=== PATIENT | female | born 1955 | race Caucasian/White ===

== ENCOUNTER → 2018-04-04 | Outpatient (CLI) | payer MEDICARE ==
[2018-04-04 10:48] LABS: HCT 40.8 % (34.0-46.0); HGB 13.1 gm/dL (11.4-16.0); MCH 30.1 pg (25.0-35.0); MCHC 32.1 g/dL (31.0-37.0); MCV 93.9 fL (80.0-100.0); Mean Platelet Volume 7.4; Platelet Count 302 k/uL (150-450); RBC 4.34 m/uL (3.80-5.40); RDW 13.2 % (11.5-15.5); WBC 7.9 k/uL (3.8-10.6)
[2018-04-04 11:16] LABS: ALT 31 U/L (9-52); AST 25 U/L (14-36); Albumin 4.2 g/dL (3.5-5.0); Alkaline Phosphatase 48 U/L (38-126); Anion Gap 8 mmol/L; Blood Urea Nitrogen 11 mg/dL (7-17); Calcium 9.4 mg/dL (8.4-10.2); Carbon Dioxide 26 mmol/L (22-30); Chloride 105 mmol/L (98-107); Cholesterol 237 mg/dL (<200); Glucose 97 mg/dL (74-99); HDL Cholesterol 81 mg/dL (40-60); LDL Cholesterol,Calculated 135 mg/dL (0-99); Potassium 4.9 mmol/L (3.5-5.1); Sodium 139 mmol/L (137-145); Total Bilirubin 0.7 mg/dL (0.2-1.3); Total Protein 6.9 g/dL (6.3-8.2); Triglycerides 105 mg/dL (<150)
[2018-04-04 11:28] LABS: Appearance,Urine Clear (Clear); Bacteria,Urine Occasional /hpf; Bilirubin,Urine Negative (Negative); Blood,Urine Negative (Negative); Color,Urine Light Yellow; Glucose,Urine (UA) Negative (Negative); Ketones,Urine Negative (Negative); Leukocyte Esterase,Urine Small (Negative); Nitrite,Urine Negative (Negative); Protein,Urine Negative (Negative); RBC,Urine <1 /hpf (0-5); Specific Gravity,Urine 1.004 (1.001-1.035); Urobilinogen,Urine <2.0 mg/dL (<2.0)
== END ==
LOC: LABWHC1 09:29
PROVIDERS: ATTEND Family Medicine
DX: Z00.00 Encounter for general adult medical examination without abnormal findings (principal)
CPT/HCPCS: 36415; 80053; 80061; 81001; 85027; 87086

== ENCOUNTER 2021-01-29 07:43 | Day surgery (SDC) | payer MEDICARE ==
[2021-01-27 09:45] VITALS: BMI 23.8
[~2021-01-29 07:43] MED LIST: LACTATED RINGERS 1,000 ML IV SCH; LIDOCAINE 1% (10MG/ML) FOR IV START INTRADERMA PRN
[2021-01-29 08:17] VITALS: TEMP 98.4
[2021-01-29] MEDS ORDERED: PROPOFOL 10 MG/ML 20 ML VIAL IV ONE (08:49)
--- NOTE | 2021-01-29 09:08 | P.PCN ---
Date of Procedure: 01/29/21 Procedure(s) Performed: BRIEF HISTORY: Patient is a 65-year-old pleasant white female scheduled for an elective colonoscopy as a part of surveillance of long-standing history of ulcerative colitis. Lately she has been having frequent bowel movements with intermittent dysphagia for a day which are loose in consistency but no blood or mucus in the stool. PROCEDURE PERFORMED: Colonoscopy with random biopsies. PREOPERATIVE DIAGNOSIS: Long-standing history history of ulcerative colitis. IV sedation per Anesthesia. PROCEDURE: After informed consent was obtained, the patient, was brought into the endoscopy unit. IV sedation was administered by Anesthesia under continuous monitoring. Digital rectal examination was normal. Initially the Olympus CF-160 flexible video colonoscope was then inserted in the rectum, gradually advanced into the cecum without any difficulty. Careful examination was performed as the scope was gradually being withdrawn. Ileocecal valve and the appendiceal orifice were visualized and appeared normal. Prep was excellent. Mucosa of the cecum, ascending colon, transverse colon appeared normal. There was mild colitis involving the distal descending colon all the way to the rectum up to 45 cm from the anal verge with mild mucosal erythema and friability and multiple biopsies were done from this area. Also there were scattered sigmoid diverticulosis seen. No polyps noted. The patient tolerated the procedure well. IMPRESSION: Mild mucosal erythema with granularity noted in the rectum sigmoid colon and distal descending colon to 45 cm from the anal verge consistent with mild left sided colitis Rest of the colon appeared normal Scattered sigmoid diverticulosis RECOMMENDATIONS: Findings of this examination were discussed with the patientas well as a family. She was advised to follow with the biopsy results. She will be started on oral mesalamine and she'll follow up in office in 3 months..
[2021-01-29 09:42] VITALS: BP 137/81; PULSE 57; RESP 20
== END 2021-01-29 10:08 | disposition home or self-care (01) ==
LOC: ORWHC2ENDO 07:43
PROVIDERS: ATTEND Internal Medicine Gastroenterology
DX: D72.820 Lymphocytosis (symptomatic) (principal); K51.90 Ulcerative colitis, unspecified, without complications; R13.10 Dysphagia, unspecified; F17.200 Nicotine dependence, unspecified, uncomplicated; Z98.890 Other specified postprocedural states; K62.89 Other specified diseases of anus and rectum; K57.30 Diverticulosis of large intestine without perforation or abscess without bleeding
CPT/HCPCS: 88305; 45380; J2704

== ENCOUNTER 2023-12-09 10:41 | Inpatient (IN) | payer MEDICARE ==
--- NOTE | 2023-12-09 11:04 | ED ---
Abdominal Pain HPI - General Chief Complaint: Abdominal Pain Stated Complaint: Constipation Time Seen by Provider: 12/09/23 10:53 Source: patient, RN notes reviewed Mode of arrival: ambulatory Limitations: no limitations - History of Present Illness Initial Comments: This is a 68-year-old female who presents to the emergency department for abdominal pain and constipation. States that 4 days ago she tripped and fell off of a stepstool. She only fell off of the bottom step. She has minor aches and pains and bruises, but states that since then she has been unable to have a bowel movement. Unsure if this is related. There was no abdominal trauma. States that her abdomen feels bloated and she has minor nausea. She is passing very little gas. Reports a history of colitis. States that she was advised to go to the emergency department to rule out a blockage. Denies any history of bowel obstructions. MD Complaint: abdominal pain - Related Data Home Medications Medication Instructions Recorded Confirmed Balsalazide Disodium 2,250 tab PO TID-W/MEALS 01/18/23 12/09/23 Vitamin D3 Gummy (Unknown Strength) 1 dose PO DAILY 12/09/23 12/09/23 Allergies Allergy/AdvReac Type Severity Reaction Status Date / Time No Known Allergies Allergy Verified 12/09/23 14:30 Review of Systems ROS Statement: Those systems with pertinent positive or pertinent negative responses have been documented in the HPI. ROS Other: All systems not noted in ROS Statement are negative. Past Medical History Past Medical History: No Reported History Additional Past Medical History / Comment(s): colitis History of Any Multi-Drug Resistant Organisms: None Reported Past Surgical History: Tonsillectomy, Tubal Ligation Additional Past Surgical History / Comment(s): COLONOSCOPY. ORIF LT LITTLE FINGER. BILAT BREAST BX Past Anesthesia/Blood Transfusion Reactions: No Reported Reaction Past Psychological History: No Psychological Hx Reported Smoking Status: Never smoker Past Alcohol Use History: Occasional Past Drug Use History: None Reported - Past Family History Brother(s) Family Medical History: Cancer General Exam Limitations: no limitations General appearance: alert, in no apparent distress Head exam: Present: atraumatic, normocephalic, normal inspection Respiratory exam: Present: normal lung sounds bilaterally. Absent: respiratory distress, wheezes, rales, rhonchi, stridor Cardiovascular Exam: Present: regular rate, normal rhythm, normal heart sounds. Absent: systolic murmur, diastolic murmur, rubs, gallop, clicks GI/Abdominal exam: Present: tenderness (diffuse), normal bowel sounds, other (bloated) Neurological exam: Present: alert, oriented X3, CN II-XII intact Psychiatric exam: Present: normal affect, normal mood Skin exam: Present: warm, dry, intact, normal color. Absent: rash Course Vital Signs 12/09/23 12/09/23 10:44 16:13 Temperature 97.6 F 97.5 F L Pulse Rate 71 66 Respiratory 16 16 Rate Blood Pressure 117/72 179/85 O2 Sat by Pulse 98 100 Oximetry Medical Decision Making - Medical Decision Making This is a 68 year old female who presents to the emergency department for abdominal pain and constipation. Was pt. sent in by a medical professional or institution? @ -No Did you speak to anyone other than the patient for history? @ -No Did you review nursing and triage notes? @ -Yes, and I agree, it is accurate with regards to the patient's symptoms. Were old charts reviewed? @ -No Differential Diagnosis? @ -Differential Abdominal Pain Women: Appendicitis, Cholecystitis, diverticulosis, ischemic bowel, pancreatitis, hepatitis, UTI, gastroenteritis, AAA, incarcerated hernia, bowel obstruction, constipation, inflammatory bowel, hepatitis, peptic ulcer disease, splenic infarction, perforated viscus, vulvitis, ovarian torsion, PID, kidney stone, placenta abruption, this is not meant to be an all-inclusive list EKG interpreted by me (3pts min.)? @ -Not obtained X-rays interpreted by me (1pt min.)? @ -Not obtained CT interpreted by me (1pt min.)? @ -CT scan of the abdomen and pelvis obtained. My interpretation identifies a large stool burden. U/S interpreted by me (1pt. min.)? @ -Not obtained What testing was considered but not performed? (CT, X-rays, U/S, labs)? Why? @ -None What meds were considered but not given? Why? @ -None Did you discuss the management of the patient with other professionals? @ -Yes, Dr. Mckenna, who accepts the patient for admission. Did you reconcile home meds? @ -Yes Was smoking cessation discussed for >3mins.? @ -No Was critical care preformed (if so, how long)? @ -No Were there social determinants of health that impacted care today? How? (Homelessness, low income, unemployed, alcoholism, drug addiction, transportation, low edu. Level, literacy, decrease access to med. care, half-way, rehab)? @ -No Was there de-escalation of care discussed even if they declined? (Discuss DNR or withdrawal of care, Hospice)? @ -No What co-morbidities impacted this encounter? (DM, HTN, Smoking, COPD, CAD, Cancer, CVA, Hep., AIDS, mental health diagnosis, sleep apnea, morbid obesity)? @ -None Was patient admitted / discharged? @ -Admitted. Lab work unremarkable. Urinalysis negative for signs of infection. CT scan of the abdomen and pelvis demonstrates a large amount of stool throughout the colon most pronounced on the right as well as small bowel feces in the terminal ileum. They advise correlation for ileus versus partial obstruction from tortuosity to the colon in the left upper quadrant. There is also a possible compression fracture of the T12 vertebral body. Given the possible ileus versus partial small bowel obstruction, patient admitted to medicine for further management. General surgery listed as consult. Patient kept NPO for the mean time and maintenance fluids were initiated. Undiagnosed new problem with uncertain prognosis? @ -None Drug Therapy requiring intensive monitoring for toxicity (Heparin, Nitro, Insulin, Cardizem)? @ -None Were any procedures done? @ -None Diagnosis/symptom? @ -Ileus vs partial obstruction Acute, or Chronic, or Acute on Chronic? @ -Acute Uncomplicated (without systemic symptoms) or Complicated (systemic symptoms)? @ -Complicated Side effects of treatment? @ -None Exacerbation, Progression, or Severe Exacerbation] @ -Not applicable Poses a threat to life or bodily function? @ -Yes This case was discussed in detail with the attending ED physician, Dr. Aguilar. Presentation, findings, and treatment plan discussed in detail as well. - Lab Data Result diagrams: 12/09/23 11:09 12/09/23 11:09 Lab Results 12/09/23 12/09/23 12/09/23 Range/Units 11:09 11:09 11:09 WBC 8.0 (3.8-10.6) k/uL RBC 4.17 (3.80-5.40) m/uL Hgb 12.9 (11.4-16.0) gm/dL Hct 37.8 (34.0-46.0) % MCV 90.6 (80.0-100.0) fL MCH 30.8 (25.0-35.0) pg MCHC 34.0 (31.0-37.0) g/dL RDW 13.5 (11.5-15.5) % Plt Count 329 (150-450) k/uL MPV 7.8 Neutrophils % 76 % Lymphocytes % 15 % Monocytes % 7 % Eosinophils % 0 % Basophils % 0 % Neutrophils # 6.1 (1.3-7.7) k/uL Lymphocytes # 1.2 (1.0-4.8) k/uL Monocytes # 0.6 (0-1.0) k/uL Eosinophils # 0.0 (0-0.7) k/uL Basophils # 0.0 (0-0.2) k/uL Sodium 130 L (137-145) mmol/L Potassium 3.8 (3.5-5.1) mmol/L Chloride 98 (98-107) mmol/L Carbon Dioxide 22 (22-30) mmol/L Anion Gap 10 mmol/L BUN 9 (7-17) mg/dL Creatinine 0.53 (0.52-1.04) mg/dL Est GFR (CKD-EPI)AfAm >90 (>60 ml/min/1.73 sqM) Est GFR (CKD-EPI)NonAf >90 (>60 ml/min/1.73 sqM) Glucose 95 (74-99) mg/dL Plasma Lactic Acid Lavon (0.7-2.0) mmol/L Calcium 8.8 (8.4-10.2) mg/dL Total Bilirubin 1.1 (0.2-1.3) mg/dL AST 27 (14-36) U/L ALT 12 (4-34) U/L Alkaline Phosphatase 61 (38-126) U/L Total Protein 7.2 (6.3-8.2) g/dL Albumin 4.4 (3.5-5.0) g/dL Amylase 54 (30-110) U/L Lipase 42 (23-300) U/L Urine Color Light Yellow Urine Appearance Clear (Clear) Urine pH 6.5 (5.0-8.0) Ur Specific Tullos 1.009 (1.001-1.035) Urine Protein Negative (Negative) Urine Glucose (UA) Negative (Negative) Urine Ketones 1+ H (Negative) Urine Blood Small H (Negative) Urine Nitrite Negative (Negative) Urine Bilirubin Negative (Negative) Urine Urobilinogen <2.0 (<2.0) mg/dL Ur Leukocyte Esterase Negative (Negative) Urine RBC 6 H (0-5) /hpf Urine WBC 1 (0-5) /hpf 12/09/23 Range/Units 11:09 WBC (3.8-10.6) k/uL RBC (3.80-5.40) m/uL Hgb (11.4-16.0) gm/dL Hct (34.0-46.0) % MCV (80.0-100.0) fL MCH (25.0-35.0) pg MCHC (31.0-37.0) g/dL RDW (11.5-15.5) % Plt Count (150-450) k/uL MPV Neutrophils % % Lymphocytes % % Monocytes % % Eosinophils % % Basophils % % Neutrophils # (1.3-7.7) k/uL Lymphocytes # (1.0-4.8) k/uL Monocytes # (0-1.0) k/uL Eosinophils # (0-0.7) k/uL Basophils # (0-0.2) k/uL Sodium (137-145) mmol/L Potassium (3.5-5.1) mmol/L Chloride (98-107) mmol/L Carbon Dioxide (22-30) mmol/L Anion Gap mmol/L BUN (7-17) mg/dL Creatinine (0.52-1.04) mg/dL Est GFR (CKD-EPI)AfAm (>60 ml/min/1.73 sqM) Est GFR (CKD-EPI)NonAf (>60 ml/min/1.73 sqM) Glucose (74-99) mg/dL Plasma Lactic Acid Lavon 0.7 (0.7-2.0) mmol/L Calcium (8.4-10.2) mg/dL Total Bilirubin (0.2-1.3) mg/dL AST (14-36) U/L ALT (4-34) U/L Alkaline Phosphatase (38-126) U/L Total Protein (6.3-8.2) g/dL Albumin (3.5-5.0) g/dL Amylase (30-110) U/L Lipase (23-300) U/L Urine Color Urine Appearance (Clear) Urine pH (5.0-8.0) Ur Specific Tullos (1.001-1.035) Urine Protein (Negative) Urine Glucose (UA) (Negative) Urine Ketones (Negative) Urine Blood (Negative) Urine Nitrite (Negative) Urine Bilirubin (Negative) Urine Urobilinogen (<2.0) mg/dL Ur Leukocyte Esterase (Negative) Urine RBC (0-5) /hpf Urine WBC (0-5) /hpf - Radiology Data Radiology results: report reviewed, image reviewed Disposition Clinical Impression: Ileus, Partial bowel obstruction Disposition: ADMITTED IP TO THIS HOSP
[2023-12-09] MEDS: KETOROLAC 15 MG/ML 1 ML VIAL IVP STA (11:24)
[2023-12-09 11:31] LABS: Basophils % (A) 0 %; Eosinophils % (A) 0 %; HCT 37.8 % (34.0-46.0); HGB 12.9 gm/dL (11.4-16.0); Lymphocytes # (A) 1.2 k/uL (1.0-4.8); Lymphocytes % (A) 15 %; MCH 30.8 pg (25.0-35.0); MCV 90.6 fL (80.0-100.0); Mean Platelet Volume 7.8; Monocytes # (A) 0.6 k/uL (0-1.0); Monocytes % (A) 7 %; Neutrophils # (A) 6.1 k/uL (1.3-7.7); Neutrophils % (A) 76 %; Platelet Count 329 k/uL (150-450); RBC 4.17 m/uL (3.80-5.40); RDW 13.5 % (11.5-15.5)
[2023-12-09 11:38] LABS: Appearance,Urine Clear (Clear); Bilirubin,Urine Negative (Negative); Blood,Urine Small (Negative); Color,Urine Light Yellow; Glucose,Urine (UA) Negative (Negative); Ketones,Urine 1+ (Negative); Leukocyte Esterase,Urine Negative (Negative); Nitrite,Urine Negative (Negative); PH, Urine 6.5 (5.0-8.0); Protein,Urine Negative (Negative); RBC,Urine 6 /hpf (0-5); Specific Gravity,Urine 1.009 (1.001-1.035); Urobilinogen,Urine <2.0 mg/dL (<2.0); WBC,Urine 1 /hpf (0-5)
[2023-12-09 11:51] LABS: ALT 12 U/L (4-34); AST 27 U/L (14-36); African American GFR (CKD) >90 (>60 ml/min/1.73 sqM); Albumin 4.4 g/dL (3.5-5.0); Alkaline Phosphatase 61 U/L (38-126); Amylase 54 U/L (30-110); Anion Gap 10 mmol/L; Blood Urea Nitrogen 9 mg/dL (7-17); Calcium 8.8 mg/dL (8.4-10.2); Carbon Dioxide 22 mmol/L (22-30); Chloride 98 mmol/L (98-107); Glucose 95 mg/dL (74-99); Lipase 42 U/L (23-300); Non-African American GFR(CKD) >90 (>60 ml/min/1.73 sqM); Potassium 3.8 mmol/L (3.5-5.1); Sodium 130 mmol/L (137-145); Total Bilirubin 1.1 mg/dL (0.2-1.3); Total Protein 7.2 g/dL (6.3-8.2)
--- NOTE | 2023-12-09 13:47 | CT ---
EXAMINATION TYPE: CT abdomen pelvis w con CT DLP: 608.9 mGycm, Automated exposure control for dose reduction was used. DATE OF EXAM: 12/09/2023 12:11 PM COMPARISON: None CLINICAL INDICATION:Female, 68 years old with history of LLQ abdominal pain, constipation; RT SIDED A BDOMINAL PAIN. HX OF RECNT FALL OFF LADDER TECHNIQUE: Axial CT abdomen pelvis w con;Sagittal and coronal reformats were created on a separate w orkstation. Contrast used:100ml mL of Isovue 300 with IV Contrast, (none if empty) Oral contrast used: without Oral Contrast (none if empty) FINDINGS: LOWER CHEST: Unremarkable ABDOMEN LIVER: Few scattered cysts and indeterminate lesion measuring 16 mm in the right hepatic lobe. GALLBLADDER AND BILE DUCTS: Unremarkable. PANCREAS: Unremarkable. SPLEEN: Unremarkable. ADRENAL GLANDS: Unremarkable. KIDNEYS AND URETERS: No evidence of hydronephrosis or renal calculus. The ureters are unremarkable. PELVIS BLADDER: Unremarkable REPRODUCTIVE: Unremarkable. ABDOMEN & PELVIS STOMACH AND BOWEL: No evidence of bowel obstruction. Large amount stool throughout the colon extendin g to the splenic flexure where there is tortuosity of the colon extending deep within inferiorly. Sma ll bowel feces is also present within the terminal ileum. PERITONEUM/RETROPERITONEUM: No evidence of pneumoperitoneum or free fluid. VASCULATURE: No evidence of aortic aneurysm. MUSCULOSKELETAL: Compression deformity to the T12 vertebral body with 25% height loss. No evidence fo r significant retropulsion. No neural foraminal stenosis or spinal canal stenosis. LYMPH NODES: No gross evidence for lymphadenopathy. SOFT TISSUE/ABDOMINAL WALL: Unremarkable IMPRESSION: 1. No evidence for acute intra-abdominal process to explain patient's pain. There is a large amount of stool throughout the colon most pronounced on the right as well as small bowel feces in the termin al ileum. Correlate for ileus versus partial obstruction from tortuosity to the colon left upper quad rant. Possibly representing patient's source of pain. 2. Possible compression fracture of the T12 vertebral body with 25% height loss anteriorly. Correlat e with MRI lumbar spine for complete evaluation for bony edema. 3. Indeterminate right hepatic lobe 16 mm lesion consider liver mass protocol MRI for complete evalu ation.
[2023-12-09] MEDS ORDERED: ACETAMINOPHEN TAB 325 MG TAB PO PRN (13:57)
[2023-12-09] MEDS ORDERED: MORPHINE SULFATE 4 MG/ML SYRINGE IV PRN (13:57)
[2023-12-09] MEDS ORDERED: NALOXONE 0.4 MG/ML 1 ML VIAL IV PRN (13:57)
[2023-12-09] MEDS ORDERED: ONDANSETRON 4 MG/2 ML VIAL IVP PRN (13:57)
[2023-12-09] MEDS: SODIUM CHLORIDE 0.9% 1,000 ML IV SCH (17:34)
[2023-12-09] MEDS: BALSALAZIDE DISODIUM 750 MG CAPSULE PO SCH (17:48)
[2023-12-09] MEDS: KETOROLAC 15 MG/ML 1 ML VIAL IVP PRN (18:37)
--- NOTE | 2023-12-09 19:13 | P.HPIM ---
History of Present Illness H&P Date: 12/09/23 Chief Complaint: Abdominal discomfort This is a pleasant 68-year-old patient, follows with Dr. Lozada. Patient is in fairly good health. Has a history of colitis. Follows with Dr. Bennett Healy from GI. Normally has 3 bowel movements a day. Patient is doing some painting in the house. Was on a stepladder. Coming down missed the last step and fell backwards. This was 5 days ago. Patient had significant pain in the lower lumbar area and in the right flank area. Patient not had a bowel movement since then. Decreased appetite. No fever no chills. Taylor decided to come in. Patient still has significant pain yesterday. Review of systems: GEN.: Tired decreased appetite EYES: None HEENT: None NECK: None RESPIRATORY: None CARDIOVASCULAR: None GASTROINTESTINAL: As above GENITOURINARY: None MUSCULOSKELETAL: [Lower back pain and right flank pain LYMPHATICS: None HEMATOLOGICAL: None PSYCHIATRY: None NEUROLOGICAL: None Social history: Drinks about 2-3 beers a week. No smoking. Lives with her Physical examination: VITAL SIGNS: 98.4, 66, 16, 169/90, 99% room air GENERAL: BMI 21.6, sitting up in her chair. Doing about possible EYES: Pupils equal. Conjunctiva amanda l. HEENT: External appearance of nose and ears normal, oral cavity grossly normal. NECK: JVD not raised; masses not palpable. HEART: First and second heart sounds are normal; no edema. LUNGS: Respiratory rate normal; clear to auscultation. ABDOMEN: Soft, nontender, liver spleen not palpable, no masses palpable. PSYCH: Alert and oriented x3; mood and affect amanda l. MUSCULOSKELETAL:No Clubbing/cyanosis;muscles-grossly intact. Evidence of OA. Some tenderness over the lumbar spine. NEUROLOGICAL: Cranial nerves grossly intact; no facial asymmetry, power and sensation grossly intact. LYMPHATICS: No lymph nodes palpable in the axilla and neck. INVESTIGATIONS, reviewed in the clinical context: December 09, 2023: White count 8 hemoglobin 12.9 platelets 329 sodium 130 potassium 3.[address] scan abdomen pelvis with contrast: Large amount of stool throughout the colon extending to the splenic flexure. Small bowel feces also present in the terminal ileum. Compression deformity of T12 vertebra with 25% height loss. Right hepatic lobe 16 mm lesion. Assessment plan: -Severe obstipation. Patient had a fall 5 days ago. Having significant pain in the lumbar area. Found to have a T12 body fracture. Likely the pain is causi ng severe constipation/ileus. General surgery consulted. Keep n.p.o. except ice chips and oral medications. -Acute T12 vertebral body fracture 25% height loss. Consult Dr. Lopez from [facility] specialist today. Pain medications. K-pad. -Chronic colitis Patient does follow with Dr. Bennett Healy outpatient. Had a baseline has about 3 BMs a day. Continue with balsalazide. -Mild hyponatremia from decreased solute intake. Has not eaten well for last 5 days. Normal saline -Full code Care was discussed with the patient. Questions answered. Past Medical History Past Medical History: No Reported History Additional Past Medical History / Comment(s): colitis History of Any Multi-Drug Resistant Organisms: None Reported Past Surgical History: Tonsillectomy, Tubal Ligation Additional Past Surgical History / Comment(s): COLONOSCOPY. ORIF LT LITTLE FI NGER. BILAT BREAST BX Past Anesthesia/Blood Transfusion Reactions: No Reported Reaction Smoking Status: Never smoker - Past Family History Brother(s) Family Medical History: Cancer Medications and Allergies Home Medications Medication Instructions Recorded Confirmed Type Balsalazide Disodium 2,250 tab PO TID-W/MEALS 01/18/23 12/09/23 History Vitamin D3 Gummy (Unknown Strength) 1 dose PO DAILY 12/09/23 12/09/23 History Allergies Allergy/AdvReac Type Severity Reaction Status Date / Time No Known Allergies Allergy Verified 12/09/23 14:30 Physical Exam Vitals: Vital Signs Temp Pulse Pulse Resp BP BP Pulse Ox 12/09/23 18:53 98.4 F 66 16 169/90 99 12/09/23 17:47 69 160/78 98 12/09/23 16:51 98.7 F 69 16 177/85 97 12/09/23 16:13 97.5 F L 66 16 179/85 100 12/09/23 10:44 97.6 F 71 16 117/72 98 Intake and Output 12/09/23 12/09/23 12/09/23 06:59 14:59 22:59 Intake Total 225 Balance 225 Intake: Intake, IV Titration 225 Amount Sodium Chloride 0.9% 1, 225 000 ml @ 75 mls/hr IV . [id number] [id number] Rx#:[id number] Other: Weight 58.967 kg 58.967 kg Results CBC & Chem 7: 12/09/23 11:09 12/09/23 11:09 Labs: Abnormal Lab Results - Last 24 Hours (Table) 12/09/23 12/09/23 Range/Units 11:09 11:09 Sodium 130 L (137-145) mmol/L Urine Ketones 1+ H (Negative) Urine Blood Small H (Negative) Urine RBC 6 H (0-5) /hpf Thrombosis Risk Factor Assmnt - Choose All That Apply Any of the Below Risk Factors Present?: No Other Risk Factors: Yes Each Risk Factor Represents 2 Points: Age 61-74 years Other congenital or acquired thrombophilia - If yes, enter type in comment: No Thrombosis Risk Factor Assessment Total Risk Factor Score: 2 Thrombosis Risk Factor Assessment Level: Low Risk
[2023-12-09] MEDS: ENOXAPARIN 40 MG/0.4 ML SYRINGE SQ SCH (20:26)
[2023-12-09] MEDS: ACETAMINOPHEN TAB 500 MG TAB PO SCH (21:57)
--- NOTE | 2023-12-10 05:30 | XR ---
EXAMINATION TYPE: XR lumbar spine 2 or 3V DATE OF EXAM: 12/09/2023 CLINICAL HISTORY: Fall with low back pain TECHNIQUE: Frontal and lateral images of the lumbar spine are obtained. COMPARISON: CT abdomen and pelvis same day. FINDINGS: There are 5 lumbar type vertebral bodies identified. Slight levoconvex scoliosis. No acute displaced fracture in the lumbar spine. Mild to moderate spurring and disc space narrowing at L3-L4 level. Vertebral body heights in the lumbar spine are maintained. Mild to moderate compression type f racture at T12 level is favored subacute or chronic in age with sclerosis. Mild overlying arterial va scular calcification. Mild to moderate multilevel spurring is present. IMPRESSION: As above.
[2023-12-10] MEDS ORDERED: PANTOPRAZOLE 40 MG/10 ML VIAL IV SCH (09:00)
[2023-12-10] MEDS: VITAMIN D3 GUMMY PO SCH (09:22)
--- NOTE | 2023-12-10 12:31 | P.GSCN ---
History of Present Illness Consult date: 12/10/23 History of present illness: CHIEF COMPLAINT: Abdominal pain HISTORY OF PRESENT ILLNESS: This is a 68-year-old female who presented to the hospital with complaints of abdominal pain and constipation. Patient reports falling from a stepstool on Wednesday, 5 days ago and landing on her back and hitting her head. She denies any loss of consciousness. She reports she init ially was able to get up and ambulate. But then started to have abdominal distention and back pain. She was unable to have a bowel movement for 4 days. She has a known history of colitis and reports usually having about 3 bowel movements a day. She has a history of a tubal ligation otherwise no other abdominal surgeries. CT scan had reported no evidence of acute intra-abdominal process. There is large amount of stool throughout the colon most pronounced on the right as well as some bowel feces in the terminal ileum. Correlate for ileus versus partial obstruction. Also noted possible compression fracture of the T12 vertebral vertebrae. Patient initially had a barium enema ordered for today for further evaluation of possible bowel obstruction. However she had 2 large bowel movements. Her abdominal distention resolved. She denies any nausea or vomiting. She is also being seen by orthopedic service for her spine fracture. Patient denies any prior history of bowel obstruction. When patient fell she denies any injury to the abdomen. PAST MEDICAL HISTORY: See below PAST SURGICAL HISTORY: See below MEDICATIONS: See below ALLERGIES: See below SOCIAL HISTORY: No illicit drug use. REVIEW OF SYSTEMS: CONSTITUTIONAL: Denies fever or chills. HEENT: Denies blurred vision, vision changes, or eye pain. Denies hemoptysis CARDIOVASCULAR: Denies chest pain or pressure. RESPIRATORY: No shortness of breath. GASTROINTESTINAL: See HPI for pertinent findings HEMATOLOGIC: Denies bleeding disorders. GENITOURINARY: Denies any blood in urine or increased urinary frequency. SKIN: Denies pruitis. Denies rash. PHYSICAL EXAM: VITAL SIGNS: Reviewed GENERAL: Well-developed in no acute distress. HEENT: No sclera icterus. Extraocular movements grossly intact. Moist buccal mucosa. Head is atraumatic, normocephalic. No nasal drainage. ABDOMEN: Soft. Nondistended. Nontender. No abdominal bruising. NEUROLOGIC: Alert and oriented. Cranial nerves II through XII grossly intact. LABORATORY DATA: WBC 8.0 Hgb 12.9 platelets 329 Sodium 130 potassium 3.8 creatinine 0.53 Lactic acid 0.7 Total bili 1.1 AST 27 ALT 12 alk phos 61 lipase 42 Urinalysis negative for infection IMAGING: CT scan abdomen pelvis reports no acute intra-abdominal process. There is large amount of stool throughout the colon most pronounced on the right as well as small bowel feces in the terminal. Correlate for ileus versus partial obstruction. Possibly representing patient's wrist pain. Possible compression fracture of T12 vertebral body. Indeterminate right hepatic lobe 16mm lesion consider liver mass protocol. ASSESSMENT: 1. Abdominal pain with constipation 2. Possible ileus 3. Compression fracture T12 vertebral body 4. Hyponatremia PLAN: -Start regular diet -Continue to monitor -Orthopedic service on consult for T12 fracture Physician Pillowcase Cleaner note has been reviewed by physician. Signing provider agrees with the documented findings, assessment, and plan of care. I have personally seen and examined the patient, reviewed the [employer] /PAs history, exam and MDM and agree with the assessment and plan as written. Based on total visit time, I have performed more than 50% of the visit. As above: We were consulted for patient's complaints of abdominal pain and bloating. Patient had 2 large bowel movements today and says she feels back to normal. Still having some back pain. Imaging suggest probable compression fracture. Small lesion in the liver also noted and discussed with patient. May resume regular diet. Recommend outpatient MRI to evaluate liver lesion. Continue stool softeners. Past Medical History Past Medical History: No Reported History Additional Past Medical History / Comment(s): colitis History of Any Multi-Drug Resistant Organisms: None Reported Past Surgical History: Tonsillectomy, Tubal Ligation Additional Past Surgical History / Comment(s): COLONOSCOPY. ORIF LT LITTLE FINGER. BILAT BREAST BX Past Anesthesia/Blood Transfusion Reactions: No Reported Reaction Smoking Status: Never smoker - Past Family History Brother(s) Family Medical History: Cancer Medications and Allergies Home Medications Medication Instructions Recorded Confirmed Type Balsalazide Disodium 2,250 tab PO TID-W/MEALS 01/18/23 12/09/23 History Vitamin D3 Gummy (Unknown Strength) 1 dose PO DAILY 12/09/23 12/09/23 History Acetaminophen Tab [Tylenol] 650 mg PO Q6HR PRN #60 tab 12/10/23 Rx Naproxen [Naprosyn] 250 mg PO BID #30 tab 12/10/23 Rx Allergies Allergy/AdvReac Type Severity Reaction Status Date / Time No Known Allergies Allergy Verified 12/09/23 14:30 Surgical - Exam Vital Signs Temp Pulse Resp BP Pulse Ox 97.6 F 71 16 117/72 98 12/09/23 10:44 12/09/23 10:44 12/09/23 10:44 12/09/23 10:44 12/09/23 10:44 Results - Labs 12/09/23 11:09 12/09/23 11:09 Abnormal Lab Results - Last 24 Hours (Table) 12/09/23 Range/Units 11:09 Sodium 130 L (137-145) mmol/L Diabetes panel 12/09/23 Range/Units 11:09 Sodium 130 L (137-145) mmol/L Potassium 3.8 (3.5-5.1) mmol/L Chloride 98 (98-107) mmol/L Carbon Dioxide 22 (22-30) mmol/L BUN 9 (7-17) mg/dL Creatinine 0.53 (0.52-1.04) mg/dL Glucose 95 (74-99) mg/dL Calcium 8.8 (8.4-10.2) mg/dL AST 27 (14-36) U/L ALT 12 (4-34) U/L Alkaline Phosphatase 61 (38-126) U/L Total Protein 7.2 (6.3-8.2) g/dL Albumin 4.4 (3.5-5.0) g/dL Calcium panel 12/09/23 Range/Units 11:09 Calcium 8.8 (8.4-10.2) mg/dL Albumin 4.4 (3.5-5.0) g/dL Pituitary panel 12/09/23 Range/Units 11:09 Sodium 130 L (137-145) mmol/L Potassium 3.8 (3.5-5.1) mmol/L Chloride 98 (98-107) mmol/L Carbon Dioxide 22 (22-30) mmol/L BUN 9 (7-17) mg/dL Creatinine 0.53 (0.52-1.04) mg/dL Glucose 95 (74-99) mg/dL Calcium 8.8 (8.4-10.2) mg/dL Adrenal panel 12/09/23 Range/Units 11:09 Sodium 130 L (137-145) mmol/L Potassium 3.8 (3.5-5.1) mmol/L Chloride 98 (98-107) mmol/L Carbon Dioxide 22 (22-30) mmol/L BUN 9 (7-17) mg/dL Creatinine 0.53 (0.52-1.04) mg/dL Glucose 95 (74-99) mg/dL Calcium 8.8 (8.4-10.2) mg/dL Total Bilirubin 1.1 (0.2-1.3) mg/dL AST 27 (14-36) U/L ALT 12 (4-34) U/L Alkaline Phosphatase 61 (38-126) U/L Total Protein 7.2 (6.3-8.2) g/dL Albumin 4.4 (3.5-5.0) g/dL
[2023-12-10 13:54] VITALS: BP 132/77; PULSE 82; RESP 20; TEMP 98
--- NOTE | 2023-12-10 15:06 | P.EN ---
Reviewed xrays and discussed patient with Nurse and facility manager. Shows mild subacute vs chronic T12 compression Fx. No immediate surgery needed. Recommended TLSO while out of bed. Rx given. F/U in office with Dr. Vasquez
--- NOTE | 2023-12-10 22:15 | P.DS ---
Providers Date of admission: 12/09/23 13:54 Expected date of discharge: 12/10/23 Attending physician: Calvin Mckenna Consults: 12/09/23 13:57 Consult Physician Urgent Consulting Provider: Alejo Meza Consult Reason/Comments: Ileus vs partial SBO Do you want consulting provider notified?: Yes 12/09/23 19:07 Consult Physician Urgent Consulting Provider: Miguelito Lopez Consult Reason/Comments: Low back pain with fall, T12 fracture Do you want consulting provider notified?: Yes Primary care physician: [facility] Hospital Course: Chief Complaint: Abdominal discomfort This is a pleasant 68-year-old patient, follows with Dr. Lozada. Patient is in fairly good health. Has a history of colitis. Follows with Dr. Bennett eHaly from GI. Normally has 3 bowel movements a day. Patient is doing some painting in the house. Was on a stepladder. Coming down missed the last step and fell backwards. This was 5 days ago. Patient had significant pain in the lower lumbar area and in the right flank area. Patient not had a bowel movement since then. Decreased appetite. No fever no chills. Taylor decided to come in. Patient still has significant pain yesterday. December 09: Patient had really good bowel movement. Abdominal pain much improved. Seen by orthopedics Anthony Fernández. Patient to follow-up with orthopedics outpatient. No surgical intervention. Patient doing really well ambulating well. Questions answered. Pain control including naproxen, Tylenol, heating pad discussed. Social history: Drinks about 2-3 beers a week. No smoking. Lives with her Physical examination: VITAL SIGNS: 98, 82, 20, 132 x 77, 99% room air GENERAL: BMI 21.6, sitting up in her chair. Comfortable EYES: Pupils equal. Conjunctiva amanda l. HEENT: External appearance of nose and ears normal, oral cavity grossly normal. NECK: JVD not raised; masses not palpable. HEART: First and second heart sounds are normal; no edema. LUNGS: Respiratory rate normal; clear to auscultation. ABDOMEN: Soft, nontender, liver spleen not palpable, no masses palpable. PSYCH: Alert and oriented x3; mood and affect amanda l. MUSCULOSKELETAL:No Clubbing/cyanosis;muscles-grossly intact. Evidence of OA. Some tenderness over the lumbar spine. Patient ambulating comfortably INVESTIGATIONS, reviewed in the clinical context: December 09, 2023: White count 8 hemoglobin 12.9 platelets 329 sodium 130 potassium 3.[address] scan abdomen pelvis with contrast: Large amount of stool throughout the colon extending to the splenic flexure. Small bowel feces also present in the terminal ileum. Compression deformity of T12 vertebra with 25% height loss. Right hepatic lobe 16 mm lesion. Assessment plan: -Severe obstipation. Patient had a fall 5 days ago. Having significant pain in the lumbar area. Found to have a T12 body fracture. Likely the pain is causing severe constipation/ileus.: Resolved Patient had good bowel movements. -Acute T12 vertebral body fracture 25% height loss. Seen with Dr. Lopez from orthopedics. Discharge with TLSO brace Pain medications. K-pad. -Chronic colitis Patient does follow with Dr. Bennett Healy outpatient. Had a baseline has about 3 BMs a day. Continue with balsalazide. -Mild hyponatremia from decreased solute intake. Has not eaten well for last 5 days. Normal saline -Full code Disposition: Home Past Medical History Past Medical History: No Reported History Additional Past Medical History / Comment(s): colitis History of Any Multi-Drug Resistant Organisms: None Reported Past Surgical History: Tonsillectomy, Tubal Ligation Additional Past Surgical History / Comment(s): COLONOSCOPY. ORIF LT LITTLE FINGER. BILAT BREAST BX Past Anesthesia/Blood Transfusion Reactions: No Reported Reaction Smoking Status: Never smoker Plan - Discharge Summary New Discharge Prescriptions: New Naproxen [Naprosyn] 250 mg PO BID #30 tab Acetaminophen Tab [Tylenol] 650 mg PO Q6HR PRN #60 tab PRN Reason: Mild Pain Or Fever > 100.5 Continue Vitamin D3 Gummy (Unknown Strength) 1 dose PO DAILY Balsalazide Disodium 2,250 tab PO TID-W/MEALS Discharge Medication List Balsalazide Disodium 2,250 tab PO TID-W/MEALS 01/18/23 [History] Vitamin D3 Gummy (Unknown Strength) 1 dose PO DAILY 12/09/23 [History] Acetaminophen Tab [Tylenol] 650 mg PO Q6HR PRN #60 tab 12/10/23 [Rx] Naproxen [Naprosyn] 250 mg PO BID #30 tab 12/10/23 [Rx] Follow up Appointment(s)/Referral(s): Pietro Pack DO [Primary Care Provider] - 1-2 days Glenroy Vasquez DO [Doctor of Osteopathic Medicine] - 1 Week Miguelito Lopez MD [STAFF PHYSICIAN] - 1 Week Edil Fuller [NON-STAFF] - 1 Week Patient Instructions/Handouts: Acetaminophen (By mouth), Naproxen (By mouth), Constipation (DC), Thoracolumbosacral Orthosis (DC) Activity/Diet/Wound Care/Special Instructions: dc instructions from ortho TLSO brace while out of bed as needed. No lifting more than 5 lbs No bending over at waist Pain meds as directed F/U in office with Dr. Vasquez Discharge Disposition: HOME SELF-CARE
== END 2023-12-10 16:45 | disposition home or self-care (01) | DRG 389 ==
LOC: EC 10:41 → 5NMEDONC 13:54
PROVIDERS: ADMIT Hospitalist; ATTEND Hospitalist
DX: K56.7 Ileus, unspecified (principal); E87.1 Hypo-osmolality and hyponatremia; S22.080A Wedge compression fracture of T11-T12 vertebra, initial encounter for closed fracture; K59.00 Constipation, unspecified; K52.9 Noninfective gastroenteritis and colitis, unspecified; Z79.899 Other long term (current) drug therapy; W11.XXXA Fall on and from ladder, initial encounter; Y92.008 Other place in unspecified non-institutional (private) residence as the place of occurrence of the external cause
CPT/HCPCS: 36415; 72100; 74177; 80053; 81001; 82150; 83605; 83690; 85025; 96374; 99285